=== PATIENT | female | born 1945 | race Caucasian/White ===

== ENCOUNTER 2018-11-14 12:53 | Outpatient (RCR) | payer MEDICARE, MEDICAID ==
[2018-10-17 09:10] VITALS: BP 146/58
[2018-10-17] MEDS: diphenhydrAMINE 50 MG/ML INJ (BENADRYL) IV SCH (09:41)
[2018-10-17] MEDS: IRON DEXTRAN IV SCH ×2 (09:46)
[2018-10-17] MEDS: SODIUM CHLORIDE IV SCH ×2 (09:46)
[2018-10-19] MEDS: diphenhydrAMINE 50 MG/ML INJ (BENADRYL) IV SCH (09:27)
[2018-10-19] MEDS: IRON DEXTRAN IV SCH ×2 (09:31)
[2018-10-19] MEDS: SODIUM CHLORIDE IV SCH ×2 (09:31)
[2018-10-19 10:22] VITALS: BP 139/58
[2018-10-21] MEDS: IRON DEXTRAN IV SCH ×2 (09:15)
[2018-10-21] MEDS: SODIUM CHLORIDE IV SCH ×2 (09:15)
[2018-10-21] MEDS: diphenhydrAMINE 50 MG/ML INJ (BENADRYL) IV SCH (09:16)
[2018-10-21 09:30] VITALS: BP 103/68
[~2018-11-14] VITALS: Ht 157.5 cm; Wt 75.0 kg
[2018-11-14] MEDS ORDERED: IRON DEXTRAN 1,000 MG/NS 250 ML IVPB IV ONE ×2 (13:00)
[2018-11-14] MEDS ORDERED: IRON DEXTRAN 25 MG/NS 6.25 ML TOTAL VOLUME IV ONE ×3 (13:00)
[2018-11-14] MEDS ORDERED: RT-ALBUTEROL SULF 2.5 MG/3 ML PRE-MIX VIAL INH PRN (13:15)
[2018-11-14] MEDS ORDERED: HYDROCORTISONE 100 MG/2 ML (Solu-CORTEF) VIAL IV PRN (13:15)
[2018-11-14] MEDS ORDERED: EPINEPHrine INJECTION 1 MG/ML AMP IM PRN (13:15)
[2018-11-14] MEDS ORDERED: diphenhydrAMINE 50 MG/ML INJ (BENADRYL) IV PRN (13:15)
[2018-11-14] MEDS ORDERED: NS IV 1000 ML 1,000 ML IV SCH (13:15)
[2018-11-14 15:00] VITALS: BP 135/63
== END 2018-11-14 15:00 | disposition home or self-care (01) ==
LOC: SDC 12:53
PROVIDERS: ATTEND Pediatrics
DX: D64.9 Anemia, unspecified (principal)
CPT/HCPCS: 96365; 96366; 96374; 96375

== ENCOUNTER → 2018-11-18 | Outpatient (CLI) | payer MEDICARE, MEDICAID ==
[~2018-11-18] VITALS: Ht 157.5 cm; Wt 75.0 kg
[~2018-11-18] MED LIST: NS IV 500 ML 500 ML ONE
[2018-11-18 15:13] VITALS: BP 179/63
[2018-11-18 16:22] VITALS: BP 179/63
[2018-11-18 16:40] VITALS: BP 169/72
[2018-11-18 18:35] VITALS: BP 155/90
--- NOTE | 2018-11-18 18:52 | NUR ---
Hand written order for 2 units of PRBC to transfuse. Report received from Wanda Branch from day surg. Pt with reg diet and ate well. Denies pain, distress, questions or concerns. Call light in reach.
[2018-11-18 21:00] VITALS: BP 168/70
[2018-11-18 22:15] VITALS: BP 169/72
--- NOTE | 2018-11-18 22:20 | NUR ---
discharge instructions given to pt an transport team.
== END ==
LOC: SDC 14:45
PROVIDERS: ATTEND Nurse Practitioner Family
DX: D64.9 Anemia, unspecified (principal); E11.9 Type 2 diabetes mellitus without complications; I10 Essential (primary) hypertension
CPT/HCPCS: 36415; 36430; 85014; 85018; 86850; 86900; 86901; 86920

== ENCOUNTER 2018-12-12 13:32 | Outpatient (RCR) | payer MEDICARE, MEDICAID ==
[~2018-12-12] VITALS: Ht 157.5 cm; Wt 75.0 kg
[2018-12-12] MEDS ORDERED: diphenhydrAMINE 50 MG/ML INJ (BENADRYL) ONE (13:40)
[2018-12-12] MEDS ORDERED: diphenhydrAMINE 50 MG/ML INJ (BENADRYL) IV PRN (13:45)
[2018-12-12] MEDS ORDERED: IRON DEXTRAN 25 MG/NS 6.25 ML TOTAL VOLUME IV ONE ×3 (13:45)
[2018-12-12] MEDS ORDERED: IRON DEXTRAN 1,000 MG/NS 250 ML IVPB IV ONE ×2 (13:45)
[2018-12-12 16:12] VITALS: BP 137/53
== END 2019-03-12 | disposition home or self-care (01) ==
LOC: SDC 13:32
PROVIDERS: ATTEND Pediatrics
DX: D64.9 Anemia, unspecified (principal)
CPT/HCPCS: 96365; 96366; 96374; 96375

== ENCOUNTER 2018-12-20 10:12 | Emergency (ER) | payer MEDICARE, MEDICAID ==
[~2018-12-20] VITALS: Ht 152.4 cm; Wt 74.8 kg
--- NOTE | 2018-12-20 10:21 | NUR ---
IV placed to LAC per Renu FAJARDO. Labs drawn
[2018-12-20] MEDS ORDERED: RT-ALBUTEROL/IPRATROPIUM 3 ML (DUONEB) VIAL INH ONE (10:30)
--- NOTE | 2018-12-20 10:30 | NUR ---
Pt reports she is having a stool in her depends garmet. RN gathering RT tx supplies.
--- NOTE | 2018-12-20 10:37 | NUR ---
Duoneb began for audible wheezing. This is second tx. Pt had tx with EMS.
--- NOTE | 2018-12-20 10:45 | NUR ---
Tx ended. Pt is more audible with wheezing.
[2018-12-20] MEDS: NS IV 1000 ML 1,000 ML IV SCH ×2 (10:52→12:30)
--- NOTE | 2018-12-20 11:00 | NUR ---
Pt cleansed of incont of dk black color semi soft stool and liquid in depends and into clothing and sheets. Time 8488-0341. Pt was straight cath for urine specimen. New depends placed on pt.
[2018-12-20 11:03] LABS: HEMATOCRIT 27 % (35-52); HEMOGLOBIN 7.9 G/DL (11.5-16.0); MEAN CORPUSCULAR HEMOGLOBIN 25 PG (25-34); MEAN CORPUSCULAR HGB CONC 30 G/DL (32-36); MEAN CORPUSCULAR VOLUME 83 FL (80-99); WHITE BLOOD COUNT 13.3 10^3/uL (4.3-11.0)
[2018-12-20 11:04] LABS: BASOPHILS % (AUTO) 0 % (0-10); EOSINOPHILS % (AUTO) 1 % (0-10); LYMPHOCYTES % (AUTO) 6 % (12-44); MEAN PLATELET VOLUME 9.6 FL (7.4-10.4); MONOCYTES % (AUTO) 5 % (0-12); PLATELET COUNT 400 10^3/uL (130-400); RED CELL DISTRIBUTION WIDTH 21.7 % (10.0-14.5)
[2018-12-20 11:05] LABS: EOSINOPHILS # (AUTO) 0.1 10^3/uL (0.0-0.3); LYMPHOCYTES # (AUTO) 0.8 X 10^3 (1.0-4.0); MONOCYTES # (AUTO) 0.6 X 10^3 (0.0-1.0); NEUTROPHILS # (AUTO) 11.7 X 10^3 (1.8-7.8); NEUTROPHILS % (AUTO) 88 % (42-75)
[2018-12-20 11:22] LABS: CARBON DIOXIDE 28 MMOL/L (21-32); CHLORIDE 103 MMOL/L (98-107); POTASSIUM 3.9 MMOL/L (3.6-5.0); SODIUM 142 MMOL/L (135-145)
[2018-12-20 11:23] LABS: ALANINE AMINOTRANSFERASE 6 U/L (0-55); ALBUMIN 3.6 GM/DL (3.2-4.5); ALKALINE PHOSPHATASE 86 U/L (40-136); BILIRUBIN,TOTAL 0.4 MG/DL (0.1-1.0); BUN/CREATININE RATIO 15; CALCIUM 9.3 MG/DL (8.5-10.1); CREATININE SERUM 0.68 MG/DL (0.60-1.30); GFR ESTIMATED > 60; GLUCOSE 137 MG/DL (70-105); TOTAL PROTEIN 6.6 GM/DL (6.4-8.2)
[2018-12-20 11:33] LABS: ATYPICAL LYMPHOCYTES 3 %; BAND NEUTROPHILS 1 %; EOSINOPHILS % (MANUAL) 1 %; LYMPHOCYTES % (MANUAL) 7 %; MONOCYTES % (MANUAL) 6 %; NEUTROPHILS % (MANUAL) 82 %
[2018-12-20 11:34] LABS: ELLIPT/OVALOCYTES SLIGHT; HYPOCHROMASIA 2+; MICROCYTOSIS 2+; POIKILOCYTOSIS 1+
--- NOTE | 2018-12-20 11:48 | Diagnostic Imaging Report ---
INDICATION: Difficulty breathing. FINDINGS: Portable view of the chest is compared to an exam from May of 2008. Heart size appears a little larger with interval coronary artery bypass graft changes. Mild congestion is present. There are no effusions. IMPRESSION: There is mild congestive heart failure. Dictated by: Dictated on workstation # [id number]
[2018-12-20 11:49] LABS: CLARITY,URINE CLOUDY; COLOR,URINE YELLOW; GLUCOSE, URINE (UA) NEGATIVE (NEGATIVE); PROTEIN,URINE NEGATIVE (NEGATIVE)
[2018-12-20 11:50] LABS: BACTERIA,URINE 4+ /HPF; KETONES,URINE NEGATIVE (NEGATIVE); LEUKOCYTE ESTERASE ,URINE 1+ (NEGATIVE); NITRITE,URINE NEGATIVE (NEGATIVE); RBC,URINE RARE /HPF; UROBILINOGEN,URINE 0.2 MG/DL (NORMAL)
[2018-12-20 11:55] LABS: BILIRUBIN,URINE 1+ (NEGATIVE)
--- NOTE | 2018-12-20 12:00 | NUR ---
Pt resting with spouse in room. Pt continues an audible wheeze Dr is aware of.
[2018-12-20] MEDS ORDERED: cefTRIAXone FOR IV USE 1,000 MG in WATER (STERILE) FOR INJECTION 10 ML IV SCH (13:00)
[2018-12-20] MEDS ORDERED: FUROSEMIDE 40 MG/4 ML INJ (LASIX) IVP ONE (13:00)
[2018-12-20] MEDS ORDERED: PANTOPRAZOLE 40 MG (PROTONIX) VIAL ONE (13:11)
--- NOTE | 2018-12-20 13:12 | ED Respiratory ---
General Chief Complaint: Respiratory Problems Stated Complaint: NAUSEA; DIARRHEA Nursing Triage Note: Pt sent per EMS from [facility] for CC: SOA. EMS report patient wheezing and began Duoneb. Pt has tx order at [facility] and no tx for 3 days per . Source: patient, EMS notes reviewed Exam Limitations: no limitations History of Present Illness Date Seen by Provider: Dec 20, 2018 Time Seen by Provider: 11:00 Initial Comments Patient is a 73-year-old senior care patient with history of dementia presents with multiple medical complaints. Patient reports nonproductive cough with increased shortness of breath over the past 3 days. No fever chills or sweats. Patient also reports abdominal pain, distention with black stools. No recent antibiotics. No history of C. difficile. Denies nausea and vomiting. Also complains of generalized weakness and malaise. Timing/Duration: week Severity: moderate Prior Episodes/Possible Cause: occasional episodes Modifying Factors: Improves With Activity Associated Symptoms: cough, shortness of breath, wheezing Allergies and Home Medications Allergies Coded Allergies: Sulfa (Sulfonamides) (Verified Allergy, Unknown, 06/22/07) Patient Home Medication List Home Medication List Reviewed: Yes Review of Systems Review of Systems Constitutional: see HPI Respiratory: see HPI Cardiovascular: see HPI Gastrointestinal: no symptoms reported Genitourinary: see HPI Musculoskeletal: see HPI Skin: see HPI Psychiatric/Neurological: See HPI Hematologic/Lymphatic: See HPI Past Nofnexp-Cbdjhp-Mzieag Hx Patient Social History Alcohol Use: Denies Use Recreational Drug Use: Yes Smoking Status: Current Someday Smoker Type Used: Cigarettes Recent Foreign Travel: No Contact w/Someone Who Travel: No Recent Infectious Disease Expo: No Recent Hopitalizations: No Physical Abuse: No Sexual Abuse: No Mistreated: No Fear: No Immunizations Up To Date Date of Influenza Vaccine: Jun 06, 2019 Seasonal Allergies Seasonal Allergies: No Past Medical History Surgeries: Yes (CHOLECYSTECTOMY, BILATERAL CARPAL TUNNEL, COLONOSCOPY ) Gallbladder, Hysterectomy, Tonsillectomy Respiratory: Yes (tobaccoism) Emphysema Cardiac: Yes (CABG) High Cholesterol, Hypertension Neurological: No Reproductive Disorders: Yes (total hys with bilt oopherect) 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 muscle weakness) Endocrine: Yes Hypothyroidsim, Diabetes, Non-Insulin dep HEENT: No Cancer: No Psychosocial: Yes Depression Integumentary: No Blood Disorders: Yes (bowel hemorrhage 3 yrs ago) Physical Exam Vital Signs - First Documented 12/20/18 10:12 Temp 99.3 Pulse 102 Resp 21 B/P (MAP) 117/58 (77) Pulse Ox 91 O2 Delivery Room Air Capillary Refill : Less Than 3 Seconds Height: 5'0" Weight: 165lbs. 4.0oz. 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 nml as tested, no motor/sensory deficits, alert, normal mood/affect Skin: warm/dry Focused Exam Sepsis Stage: Ruled Out Progress/Results/Core Measures Suspected Sepsis Recent Fever Within 48 Hours: No Infection Criteria Present: Suspected New Infection New/Unexplained Altered Menta: No Sepsis Screen: Possible Sepsis Risk SIRS Temperature:99.3 Pulse: 102 Respiratory Rate: 21 Laboratory Tests 12/20/18 10:21: White Blood Count 13.3H Blood Pressure 117 /58 Mean: 77 Laboratory Tests 12/20/18 10:21: Creatinine 0.68, Platelet Count 400, Total Bilirubin 0.4 Results/Orders Lab Results Laboratory Tests Test 12/20/18 10:21 12/20/18 11:00 Range/Units White Blood Count 13.3 H 4.3-11.0 10^3/uL Red Blood Count 3.18 L 4.35-5.85 10^6/uL Hemoglobin 7.9 L 11.5-16.0 G/DL Hematocrit 27 L 35-52 % Mean Corpuscular Volume 83 80-99 FL Mean Corpuscular Hemoglobin 25 25-34 PG Mean Corpuscular Hemoglobin Concent 30 L 32-36 G/DL Red Cell Distribution Width 21.7 H 10.0-14.5 % Platelet Count 400 130-400 10^3/uL Mean Platelet Volume 9.6 7.4-10.4 FL Neutrophils (%) (Auto) 88 H 42-75 % Lymphocytes (%) (Auto) 6 L 12-44 % Monocytes (%) (Auto) 5 0-12 % Eosinophils (%) (Auto) 1 0-10 % Basophils (%) (Auto) 0 0-10 % Neutrophils # (Auto) 11.7 H 1.8-7.8 X 10^3 Lymphocytes # (Auto) 0.8 L 1.0-4.0 X 10^3 Monocytes # (Auto) 0.6 0.0-1.0 X 10^3 Eosinophils # (Auto) 0.1 0.0-0.3 10^3/uL Basophils # (Auto) 0.0 0.0-0.1 10^3/uL Neutrophils % (Manual) 82 % Lymphocytes % (Manual) 7 % Monocytes % (Manual) 6 % Eosinophils % (Manual) 1 % Band Neutrophils 1 % Atypical Lymphocytes 3 % Hypochromasia 2+ Poikilocytosis 1+ Microcytosis 2+ Macrocytosis 1+ Elliptocytes SLIGHT Sodium Level 142 135-145 MMOL/L Potassium Level 3.9 3.6-5.0 MMOL/L Chloride Level 103 98-107 MMOL/L Carbon Dioxide Level 28 21-32 MMOL/L Anion Gap 11 5-14 MMOL/L Blood Urea Nitrogen 10 7-18 MG/DL Creatinine 0.68 0.60-1.30 MG/DL Estimat Glomerular Filtration Rate > 60 BUN/Creatinine Ratio 15 Glucose Level 137 H 70-105 MG/DL Calcium Level 9.3 8.5-10.1 MG/DL Corrected Calcium 9.6 8.5-10.1 MG/DL Total Bilirubin 0.4 0.1-1.0 MG/DL Aspartate Amino Transf (AST/SGOT) 10 5-34 U/L Alanine Aminotransferase (ALT/SGPT) 6 0-55 U/L Alkaline Phosphatase 86 40-136 U/L Troponin T 30 H <=10 NG/L Total Protein 6.6 6.4-8.2 GM/DL Albumin 3.6 3.2-4.5 GM/DL Urine Color YELLOW Urine Clarity CLOUDY H Urine pH 6.0 5-9 Urine Specific [place] 1.020 1.016-1.022 Urine Protein NEGATIVE NEGATIVE Urine Glucose (UA) NEGATIVE NEGATIVE Urine Ketones NEGATIVE NEGATIVE Urine Nitrite NEGATIVE NEGATIVE Urine Bilirubin 1+ H NEGATIVE Urine Urobilinogen 0.2 NORMAL MG/DL Urine Leukocyte Esterase 1+ H NEGATIVE Urine RBC (Auto) TRACE-I NEGATIVE Urine RBC RARE /HPF Urine WBC 10-25 H /HPF Urine Squamous Epithelial Cells 2-5 /HPF Urine Crystals NONE /LPF Urine Bacteria 4+ /HPF Urine Casts NONE /LPF Urine Mucus NEGATIVE /LPF Urine Culture Indicated YES Stool Occult Blood Immunoassay POSITIVE H NEGATIVE My Orders Orders - HOUSTON GUADARRAMA DO Cbc With Automated Diff (12/20/18 10:22) Comprehensive Metabolic Panel (12/20/18 10:22) Troponin T (12/20/18 10:22) Chest 1 View Ap/Pa Only (12/20/18 10:22) Albuterol/Ipra Inhalation Soln (Duoneb I (12/20/18 10:30) Svn Small Volume Nebulizer (12/20/18 10:28) Ns Iv 1000 Ml (Sodium Chloride 0.9%) (12/20/18 10:45) Manual Differential (12/20/18 10:21) C Difficile Ag + Toxin A/B. (12/20/18 11:12) Isolation Central Supply Req (12/20/18 11:12) Occult Blood Stool (12/20/18 11:12) Urinalysis (12/20/18 11:14) Urine Culture (12/20/18 11:00) Probnp Fs (12/20/18 12:49) Furosemide Injection (Lasix Injection) (12/20/18 13:00) Ceftriaxone For Iv Use (Rocephin For I (12/20/18 13:00) Protime With Inr (12/20/18 13:00) Pantoprazole Injection (Protonix Injecti (12/21/18 09:00) Troponin T (12/20/18 13:00) Ekg Tracing (12/20/18 13:03) Medications Given in ED Current Medications Medications Dose Ordered Sig/Dc Route Start Time Stop Time Status Last Admin Dose Admin Albuterol/ Ipratropium 3 ml ONCE ONCE INH 12/20/18 10:30 12/20/18 10:31 DC 12/20/18 10:37 3 ML Vital Signs/I&O 12/20/18 10:12 Temp 99.3 Pulse 102 Resp 21 B/P (MAP) 117/58 (77) Pulse Ox 91 O2 Delivery Room Air Capillary Refill : Less Than 3 Seconds Blood Pressure Mean: 77 Departure Communication (Admissions) Symptoms consistent with congestive heart failure, upper GI bleed and UTI. Patient requiring oxygen but is not in respiratory distress. Blood pressure heart rate stable. Protonix given. Dr. Lyles accepts patient at [facility]. Impression Primary Impression: Congestive heart failure Additional Impressions: Urinary tract infection Upper GI bleed Elevated troponin I level Disposition: 02 XFER SHT-TRM HOSP Condition: Stable Transfer Time Spoke to Accepting Phy: 13:16 Transfer Progress Notes Patient accepted by Dr. Lyles Method of Transfer: EMS Departure-Patient Inst. Referrals: ROBYN SAENZ MD (PCP/Family) Primary Care Physician HOUSTON GUADARRAMA DO Dec 20, 2018 13:12
[2018-12-20 13:28] LABS: PROTHROMBIN TIME PATIENT 13.7 SEC (12.2-14.7)
--- NOTE | 2018-12-20 14:23 | NUR ---
Call to [facility], unable to transfer pt . [facility] has 2 transfers waiting.
--- NOTE | 2018-12-20 14:29 | NUR ---
Call to [facility] to request transfer service assistance. They accepted and with be here in approx 30 min.
--- NOTE | 2018-12-20 15:05 | NUR ---
Pt was incont of very large volume of urine saturiating the depends and the sz large bed protector chux pad. Pt had small amt of soft unformed black stool noted again. Pt had pericare with plaacement of clean depends and chuxs pad.
--- NOTE | 2018-12-20 15:15 | NUR ---
[facility] here. Report given to staff.
[2018-12-20 15:20] VITALS: BP 135/38
--- NOTE | 2018-12-20 15:20 | NUR ---
[facility] Pt has improved post Lasix.
[2018-12-21] MEDS ORDERED: PANTOPRAZOLE 40 MG (PROTONIX) VIAL IV SCH (09:00)
== END 2018-12-20 15:20 | disposition short-term general hospital (02) ==
LOC: EDUNIT# 10:12 → ER FS 10:13
DX: I11.0 Hypertensive heart disease with heart failure (principal); I50.9 Heart failure, unspecified; N39.0 Urinary tract infection, site not specified; K92.2 Gastrointestinal hemorrhage, unspecified; R79.89 Other specified abnormal findings of blood chemistry; F03.90 Unspecified dementia, unspecified severity, without behavioral disturbance, psychotic disturbance, mood disturbance, and anxiety; J43.9 Emphysema, unspecified; E78.00 Pure hypercholesterolemia, unspecified; E03.9 Hypothyroidism, unspecified; E11.9 Type 2 diabetes mellitus without complications; F32.9 Major depressive disorder, single episode, unspecified; K21.9 Gastro-esophageal reflux disease without esophagitis; F17.210 Nicotine dependence, cigarettes, uncomplicated; Z88.2 Allergy status to sulfonamides; Z87.19 Personal history of other diseases of the digestive system; Z95.1 Presence of aortocoronary bypass graft; Z90.710 Acquired absence of both cervix and uterus; Z90.89 Acquired absence of other organs
CPT/HCPCS: 36415; 51701; 71045; 80053; 81000; 82274; 83880; 84484; 85007; 85027; 85610; 87077; 87088; 87324; 87449; 93005

== ENCOUNTER 2019-01-01 11:08 | Emergency (ER) | payer MEDICARE, MEDICAID ==
[~2019-01-01] VITALS: Ht 152.4 cm; Wt 74.8 kg
--- NOTE | 2019-01-01 11:11 | ED Dyspnea ---
General Stated Complaint: SOA Source of Information: Patient, EMS, Old Records, RN Notes Reviewed Exam Limitations: Other (in some distress respiratory cordero and has a non- rebreather in place) History of Present Illness Date Seen by Provider: Jan 01, 2019 Time Seen by Provider: 11:11 Initial Comments Patient presents via EMS c/ c/o respiratory distress/dyspnea/low O2 sat. Resides in a local NH. (+) cough. (+) fever here. Timing/Duration: Unknown Severity: Severe Activities at Onset: Rest Prior Episodes/Possible Cause: Other (recently dx c/ CHF; inpatient @ [facility]) Modifying Factors: Improves With Oxygen Associated Symptoms: Cough, Fever, Weakness Allergies and Home Medications Allergies Coded Allergies: Sulfa (Sulfonamide Antibiotics) (Verified Allergy, Unknown, 06/22/07) Patient Home Medication List Home Medication List Reviewed: Yes Review of Systems Review of Systems Constitutional: see HPI, fever Respiratory: see HPI, cough, short of breath All Other Systems Reviewed Negative Unless Noted: Yes (Negative excepted noted.) Past Icaxbdo-Mluaxh-Vnznmq Hx Patient Social History Type Used: Cigarettes Recent Hopitalizations: No Immunizations Up To Date Date of Influenza Vaccine: Jun 06, 2019 Seasonal Allergies Seasonal Allergies: No Past Medical History Surgeries: Yes (CHOLECYSTECTOMY, BILATERAL CARPAL TUNNEL, COLONOSCOPY ) Gallbladder, Hysterectomy, Tonsillectomy Respiratory: Yes (tobaccoism) Emphysema Cardiac: Yes (CABG) High Cholesterol, Hypertension Neurological: No Reproductive Disorders: Yes (total hys with bilt oopherect) 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 muscle weakness) Endocrine: Yes Hypothyroidsim, Diabetes, Non-Insulin dep HEENT: No Cancer: No Psychosocial: Yes Depression Integumentary: No Blood Disorders: Yes (bowel hemorrhage 3 yrs ago) Physical Exam Vital Signs Vital Signs - First Documented 01/01/19 11:08 Temp 100.1 Pulse 118 Resp 32 B/P (MAP) 133/67 (89) Pulse Ox 100 O2 Flow Rate 15.00 Capillary Refill : Height, Weight, BMI Height: 5'0" Weight: 165lbs. 4.0oz. [id number]; BMI Method:Stated General Appearance: WD/WN, Moderate Distress HEENT: Other (oral mucosa dry appearing) Neck: Normal Inspection; No JVD Respiratory: Decreased Breath Sounds (on the right as well as course), Respiratory Distress Cardiovascular: Tachycardia Gastrointestinal: Non Tender Rectal: Deferred Neurologic/Psychiatric: No Motor/Sensory Deficits, Depressed Affect, Other ( some somnolent upon arrival) Skin: Warm/Dry Focused Exam Lactate Level 01/01/19 11:11: Lactic Acid Level 4.11*H 01/01/19 13:25: Lactic Acid Level 2.30*H Lactic Acid Level Laboratory Tests Test 01/01/19 11:11 01/01/19 13:25 Lactic Acid Level 4.11 MMOL/L (0.50-2.00) *H 2.30 MMOL/L (0.50-2.00) *H Progress/Results/Core Measures Results/Orders Lab Results Laboratory Tests Test 01/01/19 11:11 01/01/19 11:37 01/01/19 11:56 01/01/19 13:25 Range/Units White Blood Count 20.2 H 4.3-11.0 10^3/uL Red Blood Count 3.66 L 4.35-5.85 10^6/uL Hemoglobin 9.1 L 11.5-16.0 G/DL Hematocrit 31 L 35-52 % Mean Corpuscular Volume 85 80-99 FL Mean Corpuscular Hemoglobin 25 25-34 PG Mean Corpuscular Hemoglobin Concent 29 L 32-36 G/DL Red Cell Distribution Width 20.4 H 10.0-14.5 % Platelet Count 587 H 130-400 10^3/uL Mean Platelet Volume 10.0 7.4-10.4 FL Neutrophils (%) (Auto) 88 H 42-75 % Lymphocytes (%) (Auto) 6 L 12-44 % Monocytes (%) (Auto) 5 0-12 % Eosinophils (%) (Auto) 1 0-10 % Basophils (%) (Auto) 0 0-10 % Neutrophils # (Auto) 17.7 H 1.8-7.8 X 10^3 Lymphocytes # (Auto) 1.1 1.0-4.0 X 10^3 Monocytes # (Auto) 1.0 0.0-1.0 X 10^3 Eosinophils # (Auto) 0.1 0.0-0.3 10^3/uL Basophils # (Auto) 0.0 0.0-0.1 10^3/uL Neutrophils % (Manual) 91 % Lymphocytes % (Manual) 2 % Monocytes % (Manual) 5 % Eosinophils % (Manual) 2 % Polychromasia SLIGHT Poikilocytosis SLIGHT Anisocytosis MODERATE Microcytosis SLIGHT Sodium Level 140 135-145 MMOL/L Potassium Level 3.0 L 3.6-5.0 MMOL/L Chloride Level 98 98-107 MMOL/L Carbon Dioxide Level 30 21-32 MMOL/L Anion Gap 12 5-14 MMOL/L Blood Urea Nitrogen 12 7-18 MG/DL Creatinine 0.95 0.60-1.30 MG/DL Estimat Glomerular Filtration Rate 58 BUN/Creatinine Ratio 13 Glucose Level 267 H 70-105 MG/DL Lactic Acid Level 4.11 *H 2.30 *H 0.50-2.00 MMOL/L Calcium Level 8.9 8.5-10.1 MG/DL Corrected Calcium 9.5 8.5-10.1 MG/DL Magnesium Level 1.9 1.8-2.4 MG/DL Total Bilirubin 0.7 0.1-1.0 MG/DL Aspartate Amino Transf (AST/SGOT) 9 5-34 U/L Alanine Aminotransferase (ALT/SGPT) 6 0-55 U/L Alkaline Phosphatase 88 40-136 U/L Troponin T 46 H <=10 NG/L Pro-B-Type Natriuretic Peptide 42759.0 H <75.0 PG/ML Total Protein 6.0 L 6.4-8.2 GM/DL Albumin 3.3 3.2-4.5 GM/DL Blood Gas Puncture Site RT RAD Blood Gas Patient Temperature 100.1 Arterial Blood pH 7.49 H 7.37-7.43 Arterial Blood Partial Pressure CO2 39 35-45 MMHG Arterial Blood Partial Pressure O2 182 H 79-93 MMHG Arterial Blood HCO3 30 H 23-27 MMOL/L Arterial Blood Total CO2 30.9 21.0-31.0 MMOL/L Arterial Blood Oxygen Saturation 100 94-100 % Arterial Blood Base Excess 5.9 H -2.5-2.5 MMOL/L Ba Test YES-POS Blood Gas Ventilator Setting NO Blood Gas Inspired Oxygen 15 Urine Color YELLOW Urine Clarity SL CLOUDY Urine pH 6 5-9 Urine Specific [place] >=1.030 1.016-1.022 Urine Protein 2+ H NEGATIVE Urine Glucose (UA) TRACE H NEGATIVE Urine Ketones NEGATIVE NEGATIVE Urine Nitrite NEGATIVE NEGATIVE Urine Bilirubin NEGATIVE NEGATIVE Urine Urobilinogen NORMAL NORMAL MG/DL Urine Leukocyte Esterase NEGATIVE NEGATIVE Urine RBC (Auto) 3+ H NEGATIVE Urine RBC 5-10 H /HPF Urine WBC NONE /HPF Urine Crystals NONE /LPF Urine Bacteria NEGATIVE /HPF Urine Casts PRESENT /LPF Urine Hyaline Casts >50 H /LPF Urine Granular Casts 5-10 H /LPF Urine Mucus NEGATIVE /LPF Urine Culture Indicated NO My Orders Orders - FAITH ROSAS DO Cbc With Automated Diff (01/01/19 11:18) Comprehensive Metabolic Panel (01/01/19 11:18) Troponin T (01/01/19 11:18) Ekg Tracing (01/01/19 11:18) Magnesium (01/01/19 11:18) Chest 1 View Ap/Pa Only (01/01/19 11:18) Ua Culture If Indicated (01/01/19 11:18) Probnp Fs (01/01/19 11:18) Arterial Blood Gas (01/01/19 11:24) Blood Culture (01/01/19 11:25) Lactic Acid Analyzer (01/01/19 11:25) Manual Differential (01/01/19 11:11) Blood Culture (01/01/19 11:35) Lactated Ringers (Lr 1000 Ml Iv Solution (01/01/19 11:45) Piperacillin/Tazobactam (Bulk) (Zosyn In (01/01/19 11:45) Potassium Cl 10meq/50ml Ivpb (Kcl 10 Meq (01/01/19 12:30) Piperacillin Sodium/Tazobactam (Zosyn Vi (01/01/19 12:23) Ns (Ivpb) (Sodium Chloride 0.9% Ivpb Bag (01/01/19 12:23) Vancomycin Injection (Vancomycin Injecti (01/01/19 13:45) Lactated Ringers (Lr 1000 Ml Iv Solution (01/01/19 13:45) Vancomycin Injection (Vancomycin Injecti (01/01/19 13:42) Ns (Ivpb) (Sodium Chloride 0.9%) (01/01/19 13:42) Vital Signs/I&O 01/01/19 01/01/19 11:08 13:38 Temp 100.1 100.0 Pulse 118 101 Resp 32 24 B/P (MAP) 133/67 (89) 130/43 (72) Pulse Ox 100 99 O2 Flow Rate 15.00 01/02/19 00:00 Intake Total 1170 ml Balance 1170 ml Progress Progress Note : Progress Note Patient improved c/ fluids and meds. Prior to transfer, she was much more alert. Was able to titrate down her O2 to a NC. Diagnostic Imaging Diagonstic Imaging: Xray Plain Films/CT/US/NM/MRI: chest (significant right sided pneumonia) Departure Impression Primary Impression: Respiratory distress Additional Impressions: Pneumonia Lactic acid acidosis Neutrophilic leukocytosis Hypokalemia Disposition: 02 XFER SHT-TRM HOSP Condition: Improved Transfer Time Spoke to Accepting Phy: 12:35 Transfer Progress Notes Accepted by Dr. Smalls (Hospitalist). Transfer Facility: [facility] in light of [facility] not having any ICU beds). Method of Transfer: EMS Departure-Patient Inst. Referrals: ROBYN SAENZ MD (PCP/Family) Primary Care Physician FAITH ROSAS DO Jan 01, 2019 11:11
[2019-01-01 11:35] LABS: BASOPHILS % (AUTO) 0 % (0-10); EOSINOPHILS # (AUTO) 0.1 10^3/uL (0.0-0.3); EOSINOPHILS % (AUTO) 1 % (0-10); HEMATOCRIT 31 % (35-52); HEMOGLOBIN 9.1 G/DL (11.5-16.0); LYMPHOCYTES # (AUTO) 1.1 X 10^3 (1.0-4.0); LYMPHOCYTES % (AUTO) 6 % (12-44); MEAN CORPUSCULAR HEMOGLOBIN 25 PG (25-34); MEAN CORPUSCULAR HGB CONC 29 G/DL (32-36); MEAN CORPUSCULAR VOLUME 85 FL (80-99); MONOCYTES % (AUTO) 5 % (0-12); NEUTROPHILS # (AUTO) 17.7 X 10^3 (1.8-7.8); NEUTROPHILS % (AUTO) 88 % (42-75); PLATELET COUNT 587 10^3/uL (130-400); RED CELL DISTRIBUTION WIDTH 20.4 % (10.0-14.5); WHITE BLOOD COUNT 20.2 10^3/uL (4.3-11.0)
--- NOTE | 2019-01-01 11:44 | Diagnostic Imaging Report ---
INDICATION: Respiratory distress COMPARISON: 12/20/2018 TECHNIQUE: Single frontal radiograph of the chest dated 01/01/2019 FINDINGS: Postsurgical changes of a CABG. The cardiac silhouette is enlarged, though stable. No significant pulmonary vascular congestion. The left lung is clear. Extensive predominantly airspace opacities have developed within the right upper lung with minimal right basilar opacities also present. No significant pleural effusion. No pneumothorax. No acute osseous abnormality. IMPRESSION: Interval development of extensive right-sided pulmonary opacities, particularly in the right upper lung, favored to relate to pneumonia. Recommend clinical correlation and followup radiographs. Mild cardiomegaly without overt pulmonary vascular congestion. Additional stable findings as above. Dictated by: Dictated on workstation # [id number]
[2019-01-01] MEDS ORDERED: LACTATED RINGERS 1,000 ML IV SCH ×2 (11:45→13:45)
[2019-01-01] MEDS ORDERED: PIPERACILLIN/TAZOBACTAM (BULK) 4.5 GM in NS (IVPB) 100 ML IV ONE (11:45)
[2019-01-01 11:50] LABS: ABG BASE EXCESS 5.9 MMOL/L (-2.5-2.5); ABG OXYGEN SATURATION 100 % (94-100); ABG PCO2 39 MMHG (35-45); ABG PH 7.49 (7.37-7.43); ABG PO2 182 MMHG (79-93); ABG TCO2 30.9 MMOL/L (21.0-31.0)
[2019-01-01 11:51] LABS: ALLENS TEST YES-POS; INSPIRED O2 15; PATIENT TEMP 100.1; VENTILATOR NO
[2019-01-01 11:57] LABS: ALBUMIN 3.3 GM/DL (3.2-4.5); BILIRUBIN,TOTAL 0.7 MG/DL (0.1-1.0); CALCIUM 8.9 MG/DL (8.5-10.1); CREATININE SERUM 0.95 MG/DL (0.60-1.30); MAGNESIUM 1.9 MG/DL (1.8-2.4)
--- NOTE | 2019-01-01 11:58 | NUR ---
Patient incontinent of stool at this time. Cleaned and bed pad changed. Multiple small open areas of skin noted to coccyx surrounded by blanchable erythema.
[2019-01-01] MEDS ORDERED: NS (IVPB) 100 ML ONE (12:23)
[2019-01-01] MEDS ORDERED: PIPERACILLIN/TAZO 4.5 GM VIAL (ZOSYN) IV ONE (12:23)
[2019-01-01 12:30] LABS: BACTERIA,URINE NEGATIVE /HPF; BILIRUBIN,URINE NEGATIVE (NEGATIVE); CLARITY,URINE SL CLOUDY; COLOR,URINE YELLOW; GLUCOSE, URINE (UA) TRACE (NEGATIVE); HYALINE CASTS, URINE >50 /LPF; KETONES,URINE NEGATIVE (NEGATIVE); LEUKOCYTE ESTERASE ,URINE NEGATIVE (NEGATIVE); NITRITE,URINE NEGATIVE (NEGATIVE); PH,URINE 6 (5-9); PROTEIN,URINE 2+ (NEGATIVE); UROBILINOGEN,URINE NORMAL (NORMAL)
--- NOTE | 2019-01-01 12:30 | NUR ---
Called [facility] to inform of patient being diagnosed with pneumonia and pending admission. Spoke with nurse and then spoke with who also lives at [facility] to inform. Deshawn, patient's , states since [facility] no [facility] beds, he would like her to go to [place].
[2019-01-01 12:47] LABS: EOSINOPHILS % (MANUAL) 2 %; LYMPHOCYTES % (MANUAL) 2 %; MONOCYTES % (MANUAL) 5 %; NEUTROPHILS % (MANUAL) 91 %
[2019-01-01 12:48] LABS: ANISOCYTOSIS MODERATE; MICROCYTOSIS SLIGHT; POIKILOCYTOSIS SLIGHT; POLYCHROMASIA SLIGHT
[2019-01-01] MEDS: POTASSIUM CL 10MEQ/50ML IVPB 50 ML IV SCH ×2 (12:48→14:03)
[2019-01-01 13:38] VITALS: BP 130/43
[2019-01-01] MEDS ORDERED: VANCOMYCIN 1000 MG/VIAL ONE (13:42)
[2019-01-01] MEDS ORDERED: NS (IVPB) 250 ML ONE (13:42)
[2019-01-01] MEDS ORDERED: VANCOMYCIN INJECTION 1,000 MG in NS (IVPB) 250 ML IV SCH (13:45)
== END 2019-01-01 14:37 | disposition short-term general hospital (02) ==
LOC: EDUNIT# 11:08 → ER FS 11:10
DX: J18.9 Pneumonia, unspecified organism (principal); E87.2 Acidosis; D72.829 Elevated white blood cell count, unspecified; E87.6 Hypokalemia; J43.9 Emphysema, unspecified; E78.00 Pure hypercholesterolemia, unspecified; I11.0 Hypertensive heart disease with heart failure; I50.9 Heart failure, unspecified; K21.9 Gastro-esophageal reflux disease without esophagitis; E03.9 Hypothyroidism, unspecified; E11.9 Type 2 diabetes mellitus without complications; F32.9 Major depressive disorder, single episode, unspecified; Z87.19 Personal history of other diseases of the digestive system; Z88.2 Allergy status to sulfonamides; Z99.81 Dependence on supplemental oxygen; Z95.1 Presence of aortocoronary bypass graft; Z90.49 Acquired absence of other specified parts of digestive tract; Z90.710 Acquired absence of both cervix and uterus; Z90.89 Acquired absence of other organs
CPT/HCPCS: 36415; 51702; 71045; 80053; 81000; 82805; 83605; 83735; 83880; 84484; 85007; 85027; 87040; 99291